=== PATIENT | male | born 1970 | race Caucasian/White ===

== ENCOUNTER 2018-08-05 12:16 | Emergency (ER) | payer OTHER ==
[2018-08-05 12:28] VITALS: BP 134/92
[2018-08-05] MEDS ORDERED: Lidocaine 1%* 5 ML VIAL INJ ONE (13:02)
[2018-08-05] MEDS ORDERED: Tetan/Diph/Pertus SYR(Tdap)* 0.5 ML SYR(BOOSTRIX) use SYR IM ONE (13:33)
--- NOTE | 2018-08-05 13:39 | UC ---
Laceration HPI - HPI Summary HPI Summary: 47-year-old male comes in to clinic today with a laceration to the right thumb. Happened just prior to arrival with a kitchen knife. Patient was able stop the bleeding with direct pressure. Whenever he moves it or bumps that it starts to bleed again. No weakness or numbness. 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 [place] REMOVALS; - Family History Known Family History: Positive: Non-Contributory - Social History Alcohol Use: Weekly Substance Use Type: None Smoking Status (MU): Never Smoked Tobacco Review of Systems All Other Systems Reviewed And Are Negative: Yes Constitutional: Positive: Negative Skin: Positive: Other - SEE HPI Eyes: Positive: Negative ENT: Positive: Negative Respiratory: Positive: Negative Cardiovascular: Positive: Negative Gastrointestinal: Positive: Negative Motor: Positive: Negative Neurovascular: Positive: Negative Musculoskeletal: Positive: Negative Neurological: Positive: Negative Psychological: Positive: Negative Is Patient Immunocompromised?: No Physical Exam Triage Information Reviewed: Yes Appearance: Well-Appearing, No Pain Distress, Well-Nourished Vital Signs: Initial Vital Signs Temp 97.9 F 08/05/18 12:24 Pulse 62 08/05/18 12:24 Resp 18 08/05/18 12:24 BP 134/92 08/05/18 12:24 Pulse Ox 100 08/05/18 12:24 Vital Signs Reviewed: Yes Eye Exam: Normal Eyes: Positive: Conjunctiva Clear Neck exam: Normal Neck: Positive: Supple Respiratory: Positive: No respiratory distress Musculoskeletal Exam: Normal Musculoskeletal: Positive: Strength Intact, ROM Intact Neurological Exam: Normal Neurological: Positive: Alert, Muscle Tone Normal Psychological Exam: Normal Psychological: Positive: Age Appropriate Behavior Skin: Positive: Other - On the right thumb on the radial aspect there is a 18 mm linear subcutaneous laceration. Direct pressure stops breathing when you take the direct pressure often starts to bleed again. Laceration Repair - Laceration Repair 1 Description: Linear Laceration Size After Repair: Length (cm) - 18MM Modified For Repair: No Type Injection: Local Anesthesia Used: 1.0% Lido Cleansing Completed Via Routine Prep: Yes Irrigation With Pressure Irrigation Device: No Closure Material: Sutures Closure Method: Single Layer Suture Of: Skin Suture Type: Prolene - #FOUR, 5-0 PROLENE Laceration Course/Dx - Course/Dx Course Of Treatment: Patient was given TDAP Here in clinic today - Differential Dx - Laceration/Wound Provider Diagnoses: LACERATION RIGHT THUMB Discharge - Sign-Out/Discharge Documenting (check all that apply): Patient Departure All imaging exams completed and their final reports reviewed: No Studies - Discharge Plan Condition: Stable Disposition: HOME Patient Education Materials: Laceration (ED), Care For Your Stitches (ED) Referrals: Bakari Major MD [Primary Care Provider] - Additional Instructions: FOLLOW UP WITH YOUR DOCTOR. SUTURES OUT IN 8-10 DAYS. GET RECHECKED FOR ANY WORSENING OF YOUR CONDITION OR QUESTIONS OR CONCERNS. - Billing Disposition and Condition Condition: STABLE Disposition: Home
== END 2018-08-05 14:05 | disposition home or self-care (01) ==
LOC: UCEAST 12:16
DX: S61.011A Laceration without foreign body of right thumb without damage to nail, initial encounter (principal); W26.0XXA Contact with knife, initial encounter; Y92.9 Unspecified place or not applicable; Z23 Encounter for immunization
CPT/HCPCS: 12001; 90471; 90715; 99211; G0463

== ENCOUNTER 2018-08-12 15:42 | Emergency (ER) | payer OTHER ==
[2018-08-12 15:50] VITALS: BP 128/90
--- NOTE | 2018-08-12 16:18 | UC ---
HPI Wound/Suture Re-check - HPI Summary HPI Summary: 48 y/o male presents to the urgent care for suture removal s/p laceration of Rt thumb on 08/05/2018. Laceration repair was done here at the clinic. Pt states wound healing well w/o any signs of infections and can move Rt thumb w/o any problem. Pt denies fever, SOB, chest pain, abdominal pain, N/v/D. - History Of Current Complaint Chief Complaint: UCWounds Stated Complaint: SUTURE REMOVAL Time Seen by Provider: 08/12/18 16:08 Hx Obtained From: Patient Onset/Duration: Gradual Onset, Lasting Weeks - 1 week, Resolved Severity: Mild Pain Intensity: 0 Pain Scale Used: 0-10 Numeric Surgery Date: 08/05/18 - Allergies/Home Medications Allergies/Adverse Reactions: Allergies Allergy/AdvReac Type Severity Reaction Status Date / Time No Known Allergies Allergy Verified 08/12/18 15:50 PMH/Surg Hx/FS Hx/Imm Hx Previously Healthy: Yes Other GI/ History: Hiatal hernia - Surgical History Surgical History: Yes Surgery Procedure, Year, and Place: 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 [place] REMOVALS; RIGHT LEG VEIN SURGERIES - Family History Family History: breast cancer and skin cancer - Social History Occupation: Employed Full-time Lives: With Family Alcohol Use: Occasionally Substance Use Type: None Smoking Status (MU): Never Smoked Tobacco Review of Systems All Other Systems Reviewed And Are Negative: Yes Constitutional: Positive: Negative Skin: Positive: Other - laceration of Rt thumb s/p suture healing well Eyes: Positive: Negative ENT: Positive: Negative Respiratory: Positive: Negative Cardiovascular: Positive: Negative Gastrointestinal: Positive: Negative Genitourinary: Positive: Negative Motor: Positive: Negative Neurovascular: Positive: Negative Musculoskeletal: Positive: Negative Neurological: Positive: Negative Psychological: Positive: Negative Is Patient Immunocompromised?: No Physical Exam - Summary Physical Exam Summary: Vital Signs Reviewed: Yes General: well developed, well nourished male sitting in the examining table w/ o any apparent distress Eye Exam: Normal Eyes: Positive: Conjunctiva Clear - PERRLA, EOMI, fundi grossly normal ENT: Positive: Normal ENT inspection, Hearing grossly normal, Pharynx normal, TMs normal Neck: Positive: Supple, Nontender, No Lymphadenopathy Respiratory: Positive: Chest non-tender, Lungs clear, Normal breath sounds, No respiratory distress Cardiovascular: Positive: RRR, No Murmur, Pulses Normal, Brisk Capillary Refill Abdomen Description: Positive: Nontender, No Organomegaly, Soft. Negative: CVA Tenderness (R), CVA Tenderness (L) Bowel Sounds: Positive: Present Musculoskeletal: Positive: Strength Intact, ROM Intact, No Edema Neurological: Positive: Alert, Muscle Tone Normal Psychological Exam: Normal Skin: Positive:lateral aspect on Rt thumb w/ Wound healing well with crusting and moderate granulation over, non tender to palpation, [address] FROm pof the Rt thumb , sensation intact, pulses WNL. Triage Information Reviewed: Yes Vital Signs: Initial Vital Signs Temp 96.8 F 08/12/18 15:46 Pulse 60 08/12/18 15:46 Resp 16 08/12/18 15:46 BP 128/90 08/12/18 15:46 Pulse Ox 97 08/12/18 15:46 Course/Dx - Course Course Of Treatment: 48 y/o male presents to the urgent care for suture removal s/p laceration of Rt thumb on 08/05/2018. Laceration repair was done here at the clinic. Pt states wound healing well w/o any signs of infections and can move Rt thumb w/o any problem. Pt denies fever, SOB, chest pain, abdominal pain , N/v/D. Hx obtained. Wound healing well with crusting and moderate granulation over, non tender to palpation, [address] 4 sutures removed w/o any difficulty. Pt tolerated well procedure. wound cleaned with sterile water and bacitracin applied over and cover with sterile gauze. Pt advised if redness, pain or fever develops to return to the urgent care or f/u with PCP for further treatment. Pt's BP elevated today, advised to decrease salt in diet and monitor BP, and f/u with PCP. Pt understood and agreed with plan of care - Differential Dx - Laceration/Wound Differential Diagnoses: Cellulitis, Healing Wound, Suture Removal - Diagnosis Provider Diagnosis: Visit for suture removal, Elevated BP without diagnosis of hypertension Discharge - Sign-Out/Discharge Documenting (check all that apply): Patient Departure - d/c home All imaging exams completed and their final reports reviewed: No Studies - Discharge Plan Condition: Stable Disposition: HOME Patient Education Materials: Acute Wound Care (ED), Low-Sodium Diet (ED) Referrals: Bakari Major MD [Primary Care Provider] - If Needed Additional Instructions: 1-Please apply topical antibiotic over the wound. Keep wound clean and dry 2- If you develop fever or redness around your thumb, please return to the urgent care or your PCP for further management 3- Your BP is mildly elevated today. please decrease salt in your diet, monitor BP and if it continues to be elevated please f/u with your PCP for further management - Billing Disposition and Condition Condition: STABLE Disposition: Home
== END 2018-08-12 16:36 | disposition home or self-care (01) ==
LOC: UCEAST 15:42
DX: S61.011D Laceration without foreign body of right thumb without damage to nail, subsequent encounter (principal); W45.8XXD Other foreign body or object entering through skin, subsequent encounter; R03.0 Elevated blood-pressure reading, without diagnosis of hypertension

== ENCOUNTER 2018-11-17 16:52 | Observation (INO) | payer OTHER ==
--- NOTE | 2018-11-17 17:57 | ED ---
HPI Cardiac - HPI Summary HPI Summary: Pt is a 48 y/o M presenting to the ED (by private care, pt's choice) sent by Dr. Major from his office after evaluation for CP, SOB and having a point of care elevated D-dimer of 3700. A POC troponin was normal. The pt took a trip to [place] and returned last month on 11/01/18, via plane. About ten days ago , the pt noticed going up a set of stairs that he is used to, was harder than usual, that he was short of breath, and it took him longer to recover. A few days ago, he developed chest discomfort/tightness in the left infraclavicular area. The pt reports sob on exertion, cough, mild chest tightness, nasal congestion, fatigue, "feels that he has a cold". The pt denies any fever, chills , sore throat, current chest pain or shortness of breath when sitting. The pt also denies hx of blood clots. He also notes tenderness in R medial thigh area that was onset about two weeks ago and then it went away. Fam hx: Pt states his father had a hx DVT, but no known PE, and no known fam hx of clotting disorder. Vitals in room: 73 bpm. Per SOAP form, report called in by Dr. Major, the troponin from Dr. Major's office was <0.05, and the D-dimer was 3700. - History of Current Complaint Chief Complaint: EDShortnessOfBreath Stated Complaint: SENT ME UP FOR A CAT SCAN PER PT Time Seen by Provider: 11/17/18 17:20 Hx Obtained From: Patient, Other: - Dr. Major Onset/Duration: Started Days Ago, Still Present Timing: Intermittent, Lasting Days Initial Severity: Mild Current Severity: None Pain Intensity: 0 Pain Scale Used: 0-10 Numeric Chest Pain Location: Left Anterior - under clavicle Chest Pain Radiates: No Character: Tightness, Other: - discomfort Aggravating Factor(s): Exertion - for the SOB Alleviating Factor(s): Rest Associated Signs and Symptoms: Positive: Chest Pain, Shortness of Breath, Nonproductive Cough, Other: - chest discomfort - Risk Factors Pulmonary Embolism Risk Factors: Recent Travel - Allergy/Home Medications Allergies/Adverse Reactions: Allergies Allergy/AdvReac Type Severity Reaction Status Date / Time No Known Allergies Allergy Verified 11/17/18 17:07 PMH/Surg Hx/FS Hx/Imm Hx Previously Healthy: No Endocrine/Hematology History: Denies: Hx Blood Disorders, Hx Diabetes, Hx Sickle Cell Disease Cardiovascular History: Denies: Hx Hypertension, Hx Pacemaker/ICD, Other Cardiovascular Problems/ Disorders Respiratory History: Denies: Hx Asthma, Other Respiratory Problems/Disorders GI History: Reports: Hx Gastroesophageal Reflux Disease Denies: Other GI Disorders History: Denies: Hx Renal Disease, Other Problems/Disorders Musculoskeletal History: Reports: Other Musculoskeletal History - leg varicosities Denies: Hx Scoliosis Sensory History: Denies: Hx Contacts or Glasses, Hx Hearing Aid Opthamlomology History: Denies: Hx Contacts or Glasses Neurological History: Reports: Other Neuro Impairments/Disorders - 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 [place] REMOVALS; RIGHT LEG VEIN SURGERIES Hx Anesthesia Reactions: No - Immunization History Date of Influenza Vaccine: fall 2017 Infectious Disease History: No Infectious Disease History: Denies: Traveled Outside the [place] in Last 30 Days - Family History Known Family History: Positive: Blood Disorder - father had DVT that was mild & didn't need to be treated, Other Family History: breast cancer - maternal, skin cancer - paternal - Social History Occupation: Employed Full-time Lives: With Family Alcohol Use: Occasionally Alcohol Amount: 3-4 drinks a week Hx Substance Use: No Substance Use Type: Reports: None Hx Tobacco Use: No Smoking Status (MU): Never Smoked Tobacco Review of Systems Positive: Fatigue. Negative: Fever, Chills Positive: Nasal Discharge. Negative: Sore Throat Positive: Other - chest tightness Positive: Shortness Of Breath - on exertion, Cough Gastrointestinal: Negative Positive: no symptoms reported Positive: Other - right medial thigh pain sev days ago that resolved Skin: Negative Neurological: Negative Psychological: Normal All Other Systems Reviewed And Are Negative: Yes Physical Exam Triage Information Reviewed: Yes Vital Signs On Initial Exam: Initial Vitals Temp Pulse Resp BP Pulse Ox 97.4 F 70 17 139/74 100 11/17/18 17:02 11/17/18 17:02 11/17/18 17:02 11/17/18 17:02 11/17/18 17:02 Vital Signs Reviewed: Yes Appearance: Positive: Well-Appearing, No Pain Distress, Well-Nourished Skin: Positive: Warm, Skin Color Reflects Adequate Perfusion, Dry Head/Face: Positive: Normal Head/Face Inspection Eyes: Positive: EOMI, Conjunctiva Clear ENT: Positive: Normal ENT inspection, Pharynx normal, Nasal congestion, Uvula midline Neck: Positive: Supple, Nontender, No Lymphadenopathy Respiratory/Lung Sounds: Positive: Breath Sounds Present, Decreased Breath Sounds Cardiovascular: Positive: RRR, Pulses are Symmetrical in both Upper and Lower Extremities Abdomen Description: Positive: Nontender, No Organomegaly, Soft Bowel Sounds: Positive: Present Neurological: Positive: Sensory/Motor Intact, Alert, Oriented to Person Place, Time, Facial Symmetry, Speech Normal Psychiatric: Positive: Normal, Affect/Mood Appropriate Diagnostics - Vital Signs Vital Signs Temp Pulse Resp BP Pulse Ox 11/17/18 17:02 97.4 F 70 17 139/74 100 - Laboratory Result Diagrams: 11/17/18 17:51 11/17/18 17:51 Lab Statement: Any lab studies that have been ordered have been reviewed, and results considered in the medical decision making process. - Radiology Chest x-ray Radiology Interpretation Completed By: Radiologist Summary of Radiographic Findings: No active cardiopulmonary disease is noted. ED physician has reviewed this report. - EKG 1744 Cardiac Rate: NL - 65bpm EKG Rhythm: Sinus Rhythm ST Segment: Normal Ectopy: None EKG Comparison: Other - no prior to compare Summary of EKG Findings: An EKG at 1744 reveals NSR 65bpm, nml AV/IV CT, nml QTc , and nml axis. No acute changes. Re-Evaluation - Re-Evaluation First Eval Re-Evaluation Time: 21:15 Comment: Reviewed CTA results with the pt. Pt has no chest pain. Discussed admission plan with pt, he understands and agrees. Disposition - Course Course Of Treatment: Pt is a 48 y/o M presenting to the ED sent over by Dr. Major for an elevated D-dimer. The pt reports sob on exertion, mild chest tightness, nasal congestion, fatigue. The pt denies any sore throat, present chest pain or shortness of breath when sitting. The pt also denies hx of blood clots. CXR shows no active cardiopulmonary disease. An EKG at 1744 reveals NSR 65bpm, nml AV/IV CT, nml QTc, and nml axis. No acute changes. The pt will be signed out to Dr. Murcia at 1900, 11/17/18, pending flu swab (done for sxs of pt's "cold sxs", nasal congestion, fatigue) as well as CTA chest. Labs significant for d-dimer at [facility] >1050, normal troponin. Nurses notes reviewed, medications reviewd (omeprazole 20mg only med per Dr. Major), elevated BP noted. - Differential Dx - Cardiopulmonary Differential Diagnoses - Cardiopulmonary: Acute Dyspnea, Bronchitis, CAD, CHF, Influenza, Lower Resp Infection, Myocardial Infarction, Pericarditis, Pleurisy, Pulmonary Edema, Pulmonary Embolism - Diagnoses Provider Diagnoses: Pulmonary embolism Discharge - Sign-Out/Discharge Documenting (check all that apply): Patient Departure, Sign-Out Patient Signing out patient TO: Guy Murcia - Discharge Plan Condition: Stable Disposition: ADMITTED TO [facility] Referrals: Bakari Major MD [Primary Care Provider] - - Billing Disposition and Condition Condition: STABLE Disposition: Admitted to [facility] - Attestation Statements Document Initiated by Scribe: Yes Documenting Scribe: Keyonna Chicas Provider For Whom Margaritoibbev is Documenting (Include Credential): Dr. Jennifer Wynne MD. Scribe Attestation: Keyonna Mena scribed for Dr. Jennifer Wynne MD. on 11/17/18 at 2156. Scribe Documentation Reviewed: Yes Provider Attestation: The documentation as recorded by the Keyonna lui accurately reflects the service I personally performed and the decisions made by me, Dr. Jennifer Wynne MD. Status of Scribe Document: Viewed
[2018-11-17 18:16] LABS: ABS Basophils 0 10^3/ul (0-0.2); ABS Eosinophils 0.1 10^3/ul (0-0.6); ABS Lymphocytes 2.7 10^3/ul (1.0-4.8); ABS Monocytes 0.8 10^3/ul (0-0.8); ABS Nucleated RBC 0 10^3/ul; Eosinophil % 1.3 %; Hematocrit 45 % (42-52); Hemoglobin 15.1 g/dl (14.0-18.0); Lymphocyte % 31.4 %; Mean Corpuscular HGB Conc 34 g/dl (31-36); Mean Corpuscular Hemoglobin 28 pg (27-31); Mean Corpuscular Volume 84 fL (80-94); Mean Platelet Volume 8.4 fL (7.4-10.4); Nucleated Red Blood Cells % 0.1; Platelet Count 217 10^3/ul (150-450); Red Blood Count 5.32 10^6/ul (4.00-5.40); Red Cell Distribution Width 14 % (10.5-15); White Blood Count 8.6 10^3/ul (3.5-10.8)
[2018-11-17 18:24] LABS: Activated Partial Thrombo Time 30.1 seconds (26.0-36.3)
[2018-11-17 18:30] LABS: CKMB ng/mL 1.4 ng/mL (0.6-6.3)
[2018-11-17 18:32] LABS: Albumin 4.3 g/dL (3.2-5.2); Albumin/Globulin Ratio 1.3 (1-3); BUN/Creatinine Ratio 12.9 (8-20); C Reactive Protein 5.57 mg/L (<8.01); Calcium 9.2 mg/dL (8.6-10.3); EGFR African American 94.6 (>60); EGFR Non-African American 78.2 (>60); Globulin 3.4 g/dL (2-4); Potassium 3.9 mmol/L (3.5-5.0); Total Bilirubin 1.1 mg/dL (0.2-1.0); Total Protein 7.7 g/dL (6.4-8.9)
--- NOTE | 2018-11-17 19:17 | ED ---
Progress - Progress Note Progress Note: This pt was signed out by Dr. Wynne at shift change, pending disposition, awaiting flu swabs CTA chest. CTA chest, as read by radiologist IMPRESSION: 1. Large volume pulmonary emboli burden with findings of right heart strain. 2. Bosniak type I renal cyst. No follow up indicated. 3. Left thyroid lobe nodule. Recommend follow up ultrasound. Dr. Murcia has reviewed this report. Re-Evaluation - Re-Evaluation First Eval Re-Evaluation Time: 21:15 Comment: Reviewed CTA results with the pt. Pt has no chest pain. Discussed admission plan with pt, he understands and agrees. Course/Dx - Course Course Of Treatment: This pt was signed out by Dr. Wynne, pending disposition, awaiting flu swabs and CTA. Influenza A and B are both negative. CTA shows 1. Large volume pulmonary emboli burden with findings of right heart strain. 2. Bosniak type I renal cyst. No follow up indicated. 3. Left thyroid lobe nodule. Recommend follow up ultrasound. Pt does not have chest pain. He is hemodynamically stable. Discussed the case with Dr. Galan, hospitalist, who accepted the pt for admission. - Diagnoses Provider Diagnoses: Pulmonary embolism - Provider Notifications Discussed Care Of Patient With: Keyonna Galan - hospitalist Time Discussed With Above Provider: 21:21 Instructed by Provider To: Admit As Inpatient Discharge - Sign-Out/Discharge Documenting (check all that apply): Patient Departure - [place] [facility] Sign-Out Receiving patient FROM: Jennifer Wynne All imaging exams completed and their final reports reviewed: Yes Patient Received Moderate/Deep Sedation with Procedure: No - Discharge Plan Condition: Stable Disposition: ADMITTED TO [facility] - Attestation Statements Document Initiated by Scribe: Yes Documenting Scribe: Alesha Gallagher Provider For Whom Scribe is Documenting (Include Credential): Guy Murcia MD Scribe Attestation: Alesha Mena, scribed for Guy Murcia MD on 11/17/18 at 2321. Status of Scribe Document: Ready
[2018-11-17 19:20] LABS: Influenza A Molecular NEGATIVE (Negative); Influenza B Molecular NEGATIVE (Negative)
[2018-11-17] MEDS ORDERED: Iohexol 350* (CONTRAST) 500 ML MDV IV ONE (19:25)
[2018-11-17] MEDS ORDERED: Enoxaparin(*) 100 MG/ML SYR SUBCUT ONE (21:13)
[2018-11-17] MEDS ORDERED: Acetaminophen TAB* 325 MG PO PRN (21:55)
[2018-11-17] MEDS ORDERED: Ondansetron INJ* 2 MG/ML VIAL IV PRN (21:55)
[2018-11-17 22:28] LABS: Urine Appearance Clear; Urine Bilirubin Negative (Negative); Urine Blood Negative (Negative); Urine Color Yellow; Urine Glucose Negative (Negative); Urine Ketones Negative (Negative); Urine Nitrite Negative (Negative); Urine Protein Negative (Negative); Urine Specific Gravity 1.014 (1.010-1.030); Urine Urobilinogen Negative (Negative)
--- NOTE | 2018-11-18 00:57 | HP ---
CC: Dr. Bakari Major; Dr. Keyonna Galan* ADMISSION HISTORY AND PHYSICAL: DATE OF ADMISSION: 11/17/18 PRIMARY CARE PROVIDER: Dr. Bakari Major. MY ATTENDING WHILE IN THE HOSPITAL: Dr. Keyonna Galan* (dictated by MEGAN Acuña). CHIEF COMPLAINT: Shortness of breath x2 weeks. HISTORY OF PRESENT ILLNESS: Mr. Smith is a 48-year-old male with past medical history significant only for varicose veins and hiatal hernia who presents to the emergency department with 2 weeks of progressively worsening shortness of breath and occasional chest tightness. Patient states that he took a plane trip on 10/27/18 back and forth from [place] and after that time developed shortness of breath. He also had a cold with upper respiratory infectious symptoms and nasal drainage around this time. Patient's shortness of breath got worse particularly with exertion. He had occasional chest tightness. Patient denied presyncope, fevers, chills, nausea, vomiting, abdominal pain, hemoptysis, palpitations. Patient denies any sick contacts, any recent changes in his medications. Patient has never had a blood clot before. Patient had no swelling in his legs. No calf tenderness. No pain in his legs while walking. Patient went to his primary care provider and was referred to the emergency department for concern for pulmonary embolism. His chest thorax CTA had numerous small pulmonary emboli and signs of right heart strain. Patient had negative troponin. EKG with signs of slight right heart strain. We were asked to evaluate the patient for admission to the hospital due to pulmonary embolism. PAST MEDICAL HISTORY: Varicose veins, hiatal hernia, GERD. 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 MEDICATIONS: Omeprazole 40 mg p.o. daily. ALLERGIES: None. FAMILY HISTORY: The patient's father has a history of melanoma, is alive, otherwise healthy. Patient's mother is alive and healthy. The patient has a brother who is alive and well. SOCIAL HISTORY: Patient never smoked. Patient has fewer than 100 lifetime cigarettes. Patient drinks approximately 4 drinks a week and denies any illicit drug use. 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 Patient's surrogate decision maker will be his , France Smith. REVIEW OF SYSTEMS: A 14-point review of systems was reviewed and is negative except as above in the HPI. PHYSICAL EXAMINATION GENERAL: The patient is a 48-year-old male who appears stated age and sitting comfortably in bed, in no acute distress. VITAL SIGNS: Temperature 97.4, pulse rate 69, respiratory rate 16, oxygen saturation 98% on room air, blood pressure 138/88. HEENT: Head: Normocephalic, atraumatic. Sclerae anicteric. No conjunctival injection. Nasal mucosa moist. Oral mucosa moist. No pharyngeal erythema, discharge, or exudate. NECK: Supple, nontender. No lymphadenopathy. No carotid bruits auscultated. No JVD. RESPIRATORY: Clear to auscultation bilaterally. No wheezes or rhonchi. Good air exchange bilaterally. CARDIAC: Regular rate and rhythm. No clicks, murmurs, gallops, or rubs. Pulses are 2+ in the bilateral dorsalis pedis, posterior tibialis, and radial areas. ABDOMEN: Soft, nontender, nondistended. Bowel sounds present and normoactive in all 4 quadrants. No hepatosplenomegaly. No abdominal bruits auscultated. No hepatojugular reflux. NEUROLOGIC: Cranial nerves II through XII grossly intact. No focal deficits. Alert and oriented x3. PSYCHIATRIC: Pleasant, cooperative. DIAGNOSTIC STUDIES/LAB DATA: White blood cell count 8.6, hemoglobin 15.1, platelet count 217. INR 0.9, aPTT 30.1. D-dimer greater than 1050. Sodium 139 , potassium 3.9, chloride 105, carbon dioxide 26, anion gap 8, BUN 13, creatinine 1.01, glucose 95, lactic acid is 0.4, calcium 9.2. Bilirubin 1.1, AST 25, ALT 31, alkaline phosphatase 79. Creatine kinase 91, CK-MB 1.4, troponin I 0.00. CRP 5.57. BNP 13. Protein 7.7, albumin 4.3, globulin 3.4. Influenza A and B negative. Studies: Chest x-ray read as no active cardiopulmonary disease. EKG shows T-wave inversions in lead II, T-wave flattening in AVF, left axis deviation, no ST-T segment abnormalities, normal sinus rhythm, rate of 65, QTc of 440. Chest CTA read as large volume pulmonary emboli burden with findings of right heart strain; Bosniak Type 1 renal cyst, no followup indication; left thyroid lobe nodule, recommend followup ultrasound. ASSESSMENT AND PLAN/IMPRESSION: Mr. Smith is a 48-year-old male with past medical history significantly only for varicose veins and hiatal hernia who presents to the emergency department after 2 weeks of shortness of breath after a long plane ride. Patient was found to have multiple segmental and subsegmental pulmonary emboli, will be anticoagulated with Lovenox, and admitted to the hospital for observation. 1. Submassive burden of acute pulmonary emboli. Patient has no elevated cardiac markers. EKG and CTA showing slight heart strain. The patient's pulmonary emboli were very cleared provoked. Patient has no history of previous pulmonary embolism. Options for anticoagulation was discussed with the patient. He will defer this decision. Patient will be continued on Lovenox at this point 1 mg per kg twice daily. Patient to be transitioned to an oral anticoagulant of his choice. At discharge, patient will have a transesophageal echocardiogram and have this troponins trended. Patient has no lower extremity edema or calf tenderness. Given patient has excellent cardiopulmonary reserve, we will not order a lower extremity ultrasound to assess for DVT as it would not exchange clerk. No hypercoagulability workup is indicated at this time, also because it would not exchange clerk. 2. Hiatal hernia. Continue omeprazole. 3. DVT prophylaxis, full dose Lovenox for treatment of pulmonary embolism. 4. FEN. Patient will have regular unrestricted diet. Patient is not hypertensive and does not require fluids. 5. Disposition: Patient admitted for observation. TIME SPENT: Approximately 60 minutes was spent on the admission of this patient, 30 of which was spent [id number] with the patient obtaining my history and physical and discussing treatment plan. This plan was discussed with my attending, Dr. Keyonna Galan, and she is in agreement. MEGAN ACUÑA [id number]/[facility] #: [id number] RAFY
[2018-11-18] MEDS ORDERED: Pantoprazole TAB * 40 MG TAB PO SCH (09:00)
[2018-11-18] MEDS ORDERED: Enoxaparin(*) 100 MG/ML SYR SUBCUT SCH (10:00)
--- NOTE | 2018-11-18 13:12 | ECHO ---
Patient: NIGEL GAMEZ [facility] Rec#: [id number] : 1970 Date: 11/18/2018 Age: 48y Height: 187.96 cm / 74.0 in Weight: 105.69 kg / 232.9 lbs Sex: M BSA: 2.32 Room#: [facility] Admit Date#: 11/17/2018 Type: Inpatient Referring: Tay Mariscal Reading: Wisam Mendez MD Hand I Cutter: Paola Miranda RDCS CC: Bakari Major MD Transthoracic Echocardiogram Indication: Pulmonary embolism BP: 124/74 HR: 66 Rhythm: NSR Findings History: Hiatal hernia. Technical Comments: The study quality is fair. Completed at 1025. Left Ventricle: The left ventricular chamber size is normal. Mild concentric left ventricular hypertrophy is observed. There is normal left ventricular systolic function. The estimated ejection fraction is 55-60%. There is septal flattening of the interventricular septum consistent with right ventricular volume or pressure overload. Abnormal left ventricular diastolic function is observed. Abnormal left ventricular diastolic filling is observed, consistent with impaired relaxation. Left Atrium: The left atrium is mildly dilated. Right Ventricle: Moderator Band present. The right ventricle is moderately dilated. There is mild to moderate dRV hypokinesis with proximal to mid RV free wall hypokinesis to dyskinesis c/w a Fitch's sign (c/w Pulmonary Embolism). Right Atrium: The right atrium is moderately dilated. Aortic Valve: The aortic valve is trileaflet. The aortic valve leaflets are mildly thickened. There is no evidence of aortic regurgitation. There is no evidence of aortic stenosis. Mitral Valve: The mitral valve leaflets are mildly thickened. There is a trace of mitral regurgitation. There is no evidence of mitral stenosis. Tricuspid Valve: The tricuspid valve leaflets are normal. There is trace to mild tricuspid regurgitation. Unable to estimate the right ventricular systolic pressure. There is no tricuspid stenosis. Pulmonic Valve: The pulmonic valve appears normal. There is mild pulmonic regurgitation. Pericardium: There is no significant pericardial effusion. Aorta: There is mild dilatation of the ascending aorta. There is no dilatation of the aortic arch. There is mild dilatation of the aortic root. Pulmonary Artery: The main pulmonary artery appears normal. Venous: The inferior vena cava appears normal in size. There is a greater than 50% respiratory change in the inferior vena cava dimension. Summary: There was not any prior study for comparison. Conclusions Mild concentric left ventricular hypertrophy is observed. The estimated ejection fraction is 55-60%. There is septal flattening of the interventricular septum consistent with right ventricular volume or pressure overload. Abnormal left ventricular diastolic filling is observed, consistent with impaired relaxation. The left atrium is mildly dilated. The right ventricle is moderately dilated. There is mild to moderate dRV hypokinesis with proximal to mid RV free wall hypokinesis to dyskinesis c/w a Fitch's sign (c/w Pulmonary Embolism). The right atrium is moderately dilated. There is trace to mild tricuspid regurgitation. There is mild pulmonic regurgitation. There is mild dilatation of the ascending aorta. There is mild dilatation of the aortic root. Measurements Name Value Normal Range RVIDd (AP) 2D 3.6 cm (0.9 - 2.6) RVDdMajor (2D) 5.4 cm (2.2 - 4.4) RAd ISD 4CH 5.7 cm (3.4 - 4.9) RA (A4C)W 5 cm (2.9 - 4.6) IVSd (2D) 1.1 cm (0.6 - 1) LVPWd (2D) 1.1 cm (0.6 - 1) LVIDd (2D) 5 cm (3.6 - 5.4) LVIDs (2D) 3.6 cm - LV FS (2D) 29 % (25 - 45) Aortic Annulus 2.2 cm (1.4 - 2.6) Ao root diameter (2D) 3.9 cm (2.1 - 3.5) Ascending Ao 3.9 cm (2.1 - 3.4) Aortic arch 2.6 cm (1.8 - 3.4) LA dimension (AP) 2D 4 cm (2.3 - 3.8) LAd ISD 4CH 5.2 cm (2.9 - 5.3) LA ISD 4CH W 4.6 cm (2.5 - 4.5) Name Value Normal Range LA ESV SP 4CH (A/L) 74 ml - LA ESV SP 2CH (A/L) 74 ml - LA ESV BP (A/L) 76 ml - LA ESV BP (A/L) index 33 ml/m2 - LA ESV SP 4CH (MOD) 68 ml - LA ESV SP 2CH (MOD) 68 ml - Name Value Normal Range MV E-wave Vmax 0.3 m/sec - MV deceleration time 295 msec - MV A-wave Vmax 0.5 m/sec - MV E:A ratio 0.7 ratio - LV septal e' Vmax 0.07 m/sec - LV lateral e' Vmax 0.07 m/sec - LV E:e' septal ratio 4.3 ratio - LV E:e' lateral ratio 4.3 ratio - Name Value Normal Range AV Vmax 1.3 m/sec - AV VTI 24 cm - AV peak gradient 6 mmHg - AV mean gradient 3 mmHg - LVOT Vmax 1 m/sec - LVOT VTI 18 cm - LVOT peak gradient 4 mmHg - LVOT mean gradient 3 mmHg - DELMI Vmax 0.8 m/sec - Name Value Normal Range IVC diameter 2 cm - Name Value Normal Range PV Vmax 0.88 m/sec - PV peak gradient 3.14 mmHg - IL end-diastolic Vmax 1.2 m/sec -
[2018-11-18 15:37] VITALS: BP 107/77
--- NOTE | 2018-11-20 05:48 | DS ---
CC: Dr. Major * DISCHARGE SUMMARY: DATE OF ADMISSION: 11/17/18 DATE OF DISCHARGE: 11/18/18 PROVIDER: Julio César Narayan NP. ATTENDING PHYSICIAN: Dr. Zonia Bourgeois * (dictated by Julio César Narayan NP). PRIMARY CARE PROVIDER: Dr. Major. CHIEF COMPLAINT: Shortness of breath. PRIMARY DIAGNOSIS: Pulmonary embolism. SECONDARY DIAGNOSES: 1. Varicose veins. 2. Hiatal hernia. 3. Gastroesophageal reflux disease. STUDIES COMPLETED WHILE IN THE HOSPITAL: He had a chest x-ray on 11/17/18, radiologist's impression: No active cardiopulmonary disease. He had a CTA of the chest after a positive D-dimer of greater than 1050, which showed large volume pulmonary emboli with findings of right heart strain; Bosniak type 1 renal cyst, no followup needed; left thyroid lobe nodule, recommended followup ultrasound. He had a transthoracic echocardiogram, conclusion: Mild concentric left ventricular hypertrophy was observed, estimated ejection fraction was 55% to 60% . There was septal flattening of the intraventricular septum consistent with right ventricular volume or pressure overload. Abnormal left ventricular diastolic filling was observed consistent with impaired relaxation. Left atrium was mildly dilated. Left ventricle was moderately dilated. There was [id number] RV hypokinesis with proximal to mid RV free wall hypokinesis to dyskinesis consistent with Fitch sign, consistent with pulmonary embolism. The right atrium is mildly dilated. There is trace tricuspid regurg. There is mild pulmonic regurgitation. There is mild dilation of the ascending aorta and mild dilation of the aortic root. He had an electrocardiogram on 11/17/18, which showed sinus rhythm at a rate of 65 with T- wave inversions in lead 3. I have discussed these findings with Cardiology who have confirmed that the Fitch sign is consistent with pulmonary embolism, which the patient has acute pulmonary embolism. DISCHARGE MEDICATIONS: New home medications: Eliquis, he will take 10 mg p.o. b.i.d. x7 days, then Eliquis 5 mg p.o. b.i.d. for the remainder of his course of treatment. Continued home medications: Omeprazole 20 mg p.o. daily. HISTORY OF PRESENT ILLNESS AND HOSPITAL COURSE: Mr. Smith is a 48-year-old male with past medical history significant for varicose veins, hiatal hernia, who presented to the emergency room with 2 weeks of progressively worsening shortness of breath and occasional chest tightness. He states that he took a plane trip on 10/27/18 back and forth to [place]. At that time, he developed shortness of breath. He had a cold and upper respiratory infection symptoms, nasal drainage around that time. The patient's shortness of breath got worse particularly with exertion with occasional chest tightness. The patient denied any presyncopal fever, chills, nausea, vomiting, abdominal pain, hemoptysis, or palpitations. Denies any recent sick contacts or changes in his medications. The patient reports he has never had a blood clot before. He has no swelling or calf tenderness. Due to the increased shortness of breath, the patient presented to the emergency room for further evaluation. While in the emergency room, the patient had a CT of the chest that showed pulmonary embolism with right heart strain. The patient had negative troponins throughout his hospitalization. The EKG was with signs of slight right heart strain. We were asked to admit him to the hospital due to pulmonary embolism. The patient was monitored on telemetry. He did not have any arrhythmias. He reports that the tightness in his chest has improved. He was started on Lovenox subcu therapy and had a transthoracic echocardiogram that showed Fitch sign, which is consistent with pulmonary embolism. The patient was discussed in great length for continued anticoagulation and opted to proceed with the use of Eliquis for anticoagulation. The patient also reports that he has had varicose veins removed from his legs and approximately 1 week ago, he had some pain in his upper thigh. He does report that prior to any plane ride, he is prescribed Lovenox for a course of 3 days that he takes with any plane ride. At this time, Mr. Smith is stable for discharge home. REVIEW OF SYSTEMS: The patient does complain of mild left-sided chest tightness , unchanged from prior to admission. He denies any chest pain. He denies any shortness of breath. He denies any fever, chills, nausea, vomiting, or diarrhea. Denies any abdominal pain. PHYSICAL EXAM: General: At this time, Mr. Smith is sitting in his room. He is in no acute distress. Vital Signs: Blood pressure was 107/77, temperature was 98.7, heart rate 70, respirations 18, O2 saturation 97% on room air. HEENT: Head is atraumatic, normocephalic. Eyes: EOMs are intact. Sclerae anicteric and not pale. Oral mucosa appeared to be moist. Neck is supple. Lungs are clear to auscultation bilaterally. No wheezes, rales, or rhonchi. Cardiac: S1, S2. Regular rate and rhythm. No murmurs, rubs, or gallops. Abdomen is soft and nontender. Bowel sounds are present x4. Extremities: He is able to move all 4 extremities with 5/5 strength. Skin is intact. Neurologic: He is awake, alert, oriented x3. Speech is clear. Thought process is intact. There are no gross focal deficits. DISCHARGE PLAN: Mr. Smith will be discharged home. Activity as tolerated. The patient was instructed not to participate in strenuous activities. The patient can continue on a regular diet. 1. Pulmonary embolism. The patient will be placed on Eliquis 10 mg p.o. b.i.d. for 7 days and then decrease to 5 mg p.o. daily for the remainder of his course of treatment. The patient was instructed to follow up with his primary care provider in 1 to 3 days. The patient was also encouraged to drink plenty of fluids. The patient was instructed to return to the emergency room for any chest pain or shortness of breath or worsening of his symptoms. He verbalized under-standing. The patient was also counseled on watching for signs of bleeding, gastrointestinal bleeding, black or tarry stools, vomiting of blood or coffee-ground emesis. The patient verbalized understanding. The patient was also advised not to take his vacation which is planned for Wednesday to the [facility] as this would not be recommended at this time due to finding acute pulmonary embolism and risks of decompensation of his condition. The patient was not hypotensive or tachycardic throughout his hospitalization. He denied any episodes of dizziness or severe shortness of breath. He was able to maintain his O2 saturations on room air between 96% to 98%. Could consider repeat transthoracic echocardiogram in 3 months if deemed necessary to reevaluate improvement of right heart strain seen on the ECHO. 2. Gastroesophageal reflux disease. The patient should continue on omeprazole as previously prescribed. 3. Thyroid Nodule. Found to have thyroid nodule on CT scan. Recommend follow up with Ultrasound. Follow up with primary care provider to have this arranged. The patient was instructed to return to the emergency room for any severe chest pain, shortness of breath, or any other concerning symptoms. Follow up with Primary care provider in 3 to 5 days for re evaluation and recommendations on thyroid nodule management. This is a summarization of his hospitalization. For further details, please see the entire medical record. TIME SPENT: Time spent on this discharge was 60 minutes, greater than half that time was spent with the patient discussing discharge plans and instructions. CONDITION ON DISCHARGE: Stable. DISPOSITION: Home. I have discussed this my attending Dr. Zonia Bourgeois, and she is in agreement with my plan. JULIO CÉSAR NARAYAN, CAR CLEANER [id number]/[facility] #: [id number] MTDD
== END 2018-11-18 16:54 | disposition home or self-care (01) ==
LOC: ED 16:52 → MEDTELE 21:55
PROVIDERS: ADMIT Pediatrics; ATTEND Pediatrics
DX: I26.99 Other pulmonary embolism without acute cor pulmonale (principal); I83.90 Asymptomatic varicose veins of unspecified lower extremity; K44.9 Diaphragmatic hernia without obstruction or gangrene; K21.9 Gastro-esophageal reflux disease without esophagitis; R06.02 Shortness of breath; R53.83 Other fatigue
CPT/HCPCS: 36415; 71046; 71275; 80053; 81003; 82550; 82553; 83605; 83880; 84484; 85025; 85379; 85610; 85730; 86140; 93005; 93306; 96372; 96375; 99283; A9270-GY; G0378; J1650; Q9967